=== PATIENT | female | born 1980 | race Caucasian/White ===

== ENCOUNTER 2018-01-21 18:39 | Emergency (ER) | payer OTHER ==
[~2018-01-21] VITALS: Ht 152.4 cm; Wt 67.6 kg
[~2018-01-21 18:39] MED LIST: IRON236 MG; NORCO 5-325 TA1 EACH PO; ZOFRAN ODT4 MG SUBLING
[2018-01-21] MEDS ORDERED: ZYRTEC10 M5 PO (18:56)
[2018-01-21] MEDS ORDERED: WELLBUTRIN SR100 MG PO (18:56)
[2018-01-21] MEDS ORDERED: NEURONTIN 300300 M1 PO (18:57)
[2018-01-21 19:21] LABS: ABSOLUTE BASOPHILS 0.1 thou/uL (0.0-0.2); ABSOLUTE EOSINOPHILS 0.2 thou/uL (0.0-0.7); ABSOLUTE LYMPHOCYTES 3.2 thou/uL (0.8-5.3); ABSOLUTE MONOCYTES 0.7 thou/uL (0.0-1.2); ABSOLUTE NEUTROPHILS 4.6 thou/uL (1.6-8.1); BASOPHILS 1.3 %; EOSINOPHILS 2.4 %; HEMATOCRIT 43.2 % (37.0-47.0); HEMOGLOBIN 14.9 gm/dL (12.0-15.0); LYMPHOCYTES 36.7 %; MCH 32.4 pg (26.0-34.0); MCHC 34.4 g/dL (28.0-37.0); MCV 94.2 fL (80.0-100.0); MONOCYTES 7.7 %; MPV 8.7 fl. (7.2-11.1); NUCLEATED RBCS 0 /100WBC; PLATELET COUNT* 215 thou/uL (150-400); POLYS 51.9 %; RBC 4.59 mil/uL (4.20-5.00); RDW-CV 12.6 % (10.5-14.5); WBC 8.8 thou/uL (4.0-11.0)
[2018-01-21 19:30] LABS: ANION GAP 12 mmol/L (7-16); BUN 15 mg/dL (7-18); CALCIUM 9.2 mg/dL (8.5-10.1); CHLORIDE 101 mmol/L (98-107); CO2 23 mmol/L (21-32); CREATININE 0.9 mg/dL (0.6-1.3); GLUCOSE 124 mg/dL (70-99); POTASSIUM 4.3 mmol/L (3.5-5.1); SODIUM 136 mmol/L (136-145)
[2018-01-21 19:34] LABS: INR 0.9; PROTIME 9.6 Seconds (9.20-11.50)
[2018-01-21 19:41] LABS: ALBUMIN 3.9 g/dL (3.4-5.0); ALKALINE PHOSPHATASE 68 U/L (46-116); LIPASE 138 U/L (73-393); NT-PRO BRAIN NAT PEPTIDE 6 pg/mL (<300); SGOT 29 U/L (15-37); SGPT 34 U/L (30-65); TOTAL BILIRUBIN 0.2 mg/dL (<0.1-1.0); TOTAL PROTEIN 8.2 g/dL (6.4-8.2); TROPONIN-I LEVEL <0.06 ng/mL (<0.06)
[2018-01-21] MEDS ORDERED: ATIVAN1 MG PO (21:17)
[2018-01-21] MEDS ORDERED: MECLIZINE HCL12.5 MG PO (21:17)
[2018-01-21 21:32] VITALS: BP 106/67
--- NOTE | 2018-01-22 11:24 | EKG ---
[place] [address] ELECTROCARDIOGRAM REPORT Name: KARAN SALAS Room: [facility]#: [id number] Admission: 01/21/18 Attend Phys: Discharge: 01/21/18 Date of : 76 Report #: [id number] THIS REPORT FOR: //name// [facility] ED Test Date: 2018-01-21 Test Time: 18:43:58 Pat Name: KARAN SALAS Department: Room: Gender: F Station Attendant: Zheng KEITA : 1980 Requested By: Joseph Suarez Order Number: [id number] MD: Mushtaq Franco Measurements Intervals [place] Rate: 111 P: 41 MS: 173 QRS: 31 QRSD: 90 T: 15 QT: 328 QTc: 446 Interpretive Statements Sinus tachycardia Compared to ECG 08/29/2012 10:06:16 Sinus rhythm no longer present Electronically Signed On 01-22-2018 11:24:16 DAIRY NUTRITIONIST by Mushtaq Franco [email or web address] <ELECTRONICALLY SIGNED> By: Mushtaq Franco MD, [facility] 01/22/18 1124 1843 1843 Mushtaq Franco MD, FACC /EPI
== END 2018-01-21 21:33 | disposition home or self-care (01) ==
LOC: M.ERS 18:39
PROVIDERS: Emergency Medicine
DX: R42 Dizziness and giddiness (principal); F41.9 Anxiety disorder, unspecified; F17.210 Nicotine dependence, cigarettes, uncomplicated; Z90.710 Acquired absence of both cervix and uterus